=== PATIENT | female | born 1980 | race Caucasian/White ===

== ENCOUNTER → 2016-09-13 | Outpatient (REF) | payer BC ==
[~2016-09-13] MED LIST: ASPI1TAB PO; CITA20TA4 PO; DOCU100C PO; HYDR12.55 PO; HYDR25T PO; TOPI100T PO
[2016-09-13 20:06] LABS: MEAN CORPUSCULAR HEMOGLOBIN 30.8 pg (27.0-33.0); MEAN CORPUSCULAR HGB CONC 33.9 g/dl (32.0-36.5); MEAN CORPUSCULAR VOLUME 90.9 fl (80.0-96.0); RED CELL DISTRIBUTION WIDTH 12.4 % (11.5-14.5)
[2016-09-13 20:21] LABS: ALBUMIN 3.8 GM/DL (3.2-5.2); ALBUMIN/GLOBULIN RATIO 1.31 (1.00-1.93); ALKALINE PHOSPHATASE 48 U/L (45-117); ALT/SGPT 49 U/L (12-78); ANION GAP 9 MEQ/L (8-16); AST/SGOT 18 U/L (15-37); BILIRUBIN,TOTAL 0.2 MG/DL (0.2-1.0); BLOOD UREA NITROGEN 11 MG/DL (7-18); CALCIUM LEVEL 8.6 MG/DL (8.5-10.1); CARBON DIOXIDE LEVEL 28 MEQ/L (21-32); CHLORIDE LEVEL 105 MEQ/L (98-107); CREATININE FOR GFR 0.73 MG/DL (0.55-1.02); GLOMERULAR FILTRATION RATE > 60.0 (>60); GLUCOSE, FASTING 79 MG/DL (70-105); POTASSIUM SERUM 3.8 MEQ/L (3.5-5.1); SODIUM LEVEL 142 MEQ/L (136-145); TOTAL PROTEIN 6.7 GM/DL (6.4-8.2)
== END ==
LOC: M SFHCLERA 15:21
PROVIDERS: ATTEND Family Medicine
DX: R53.82 Chronic fatigue, unspecified (principal); E55.9 Vitamin D deficiency, unspecified

== ENCOUNTER → 2016-09-13 | Outpatient (CLI) | payer BC ==
--- NOTE | 2016-09-13 16:13 | REP ---
Clinical: Left rib pain . Technique: Frontal view of the chest with multiple views of the left hemithorax. Findings: Frontal view of the chest demonstrates no acute cardiopulmonary process. Multiple views of the left hemithorax demonstrates no obvious acute rib fracture or pathology. Impression: Normal left rib series Signed by Clyde Mcclellan MD 09/13/2016 04:03 P
== END ==
LOC: M LRY 15:31
PROVIDERS: ATTEND Family Medicine
DX: R07.89 Other chest pain (principal)

== ENCOUNTER → 2016-09-20 | Outpatient (CLI) | payer BC ==
[~2016-09-20] VITALS: Ht 170.2 cm; Wt 73.5 kg
[~2016-09-20] MED LIST changes: +LIDOCAINE 2% INJ 100 MG/5 ML SDV (FOR ANES.) As Ordered ONE; +NS 1,000 ML IV SCH; +PROPOFOL 200 MG/20 ML VIAL As Ordered ONE; -TOPI100T PO; +TOPI1TAB31 PO; +ePHEDrine SULFATE 25 MG/5 ML(5MG/ML) SYRINGE As Ordered ONE; +fentaNYL 100 MCG/2 ML INJECTION (J3010) As Ordered ONE
--- NOTE | 2016-09-20 12:44 | ROOR ---
Patient Name: Suzanne Rivera Procedure Date: 09/20/2016 12:33 PM Date of : 1980 Age: 36 Room: M OPP Gender: Female Note Status: Finalized Procedure: Upper GI endoscopy Indications: Functional Dyspepsia, Heartburn Providers: Raul SOTO MD Referring MD: JEZ JEAN MD Requesting Provider: Medicines: Monitored Anesthesia Care Complications: No immediate complications. Procedure: Pre-Anesthesia Assessment: - The heart rate, respiratory rate, oxygen saturations, blood pressure, adequacy of pulmonary ventilation, and response to care were monitored throughout the procedure. The Endoscope was introduced through the mouth, and advanced to the second part of duodenum. The upper GI endoscopy was accomplished without difficulty. The patient tolerated the procedure well. Findings: The esophagus was normal. The stomach was normal. The examined duodenum was normal. Impression: - Normal esophagus. - Normal stomach. - Normal examined duodenum. - No specimens collected. Recommendation: - Continue present medications. - Observe patient's clinical course. Raul Soto MD Raul SOTO MD 09/20/2016 12:44:24 PM This report has been signed electronically. Number of Addenda: 0 Note Initiated On: 09/20/2016 12:33 PM Estimated Blood Loss: Estimated blood loss: none.
--- NOTE | 2016-09-20 12:56 | ROOR ---
Patient Name: Suzanne Rivera Procedure Date: 09/20/2016 12:34 PM Date of : 1980 Age: 36 Room: [facility] Gender: Female Note Status: Finalized Procedure: Colonoscopy Indications: Generalized abdominal pain, Constipation Providers: Raul SOTO MD Referring MD: JEZ JEAN MD Requesting Provider: Medicines: Monitored Anesthesia Care Complications: No immediate complications. Procedure: Pre-Anesthesia Assessment: - The heart rate, respiratory rate, oxygen saturations, blood pressure, adequacy of pulmonary ventilation, and response to care were monitored throughout the procedure. The Colonoscope was introduced through the anus and advanced to 5 cm into the ileum. The colonoscopy was performed without difficulty. The patient tolerated the procedure well. The quality of the bowel preparation was good. Findings: The perianal and digital rectal examinations were normal. (Exam: Complete, Prep: Good or Excellent.) The colon (entire examined portion) was redundant. Small Internal Hemorrhoids. The terminal ileum appeared normal. The entire examined colon appeared normal on direct and retroflexion views. Impression: - (Exam: Complete, Prep: Good or Excellent.) - Redundant colon. - Small Internal Hemorrhoids. - The examined portion of the ileum was normal. - The entire examined colon is normal on direct and retroflexion views. - No specimens collected. - (Irritable Bowel Syndrome/IBS suspected.) Recommendation: - Continue present medications. Raul Soto MD Raul SOTO MD 09/20/2016 12:56:36 PM This report has been signed electronically. Number of Addenda: 0 Note Initiated On: 09/20/2016 12:34 PM Estimated Blood Loss: Estimated blood loss: none.
[2016-09-20 13:20] VITALS: BP 115/65
== END | disposition home or self-care (01) ==
LOC: M OPP 11:00
PROVIDERS: ATTEND Internal Medicine Gastroenterology
DX: Q43.8 Other specified congenital malformations of intestine (principal); K64.8 Other hemorrhoids; K30 Functional dyspepsia; I10 Essential (primary) hypertension; F41.9 Anxiety disorder, unspecified; F33.9 Major depressive disorder, recurrent, unspecified; F17.200 Nicotine dependence, unspecified, uncomplicated; Z79.82 Long term (current) use of aspirin; Z79.899 Other long term (current) drug therapy
CPT/HCPCS: 43235; 45378; J3010

== ENCOUNTER → 2016-12-20 | Outpatient (CLI) | payer BC ==
[~2016-12-20] MED LIST changes: -LIDOCAINE 2% INJ 100 MG/5 ML SDV (FOR ANES.) As Ordered ONE; -NS 1,000 ML IV SCH; -PROPOFOL 200 MG/20 ML VIAL As Ordered ONE; -ePHEDrine SULFATE 25 MG/5 ML(5MG/ML) SYRINGE As Ordered ONE; -fentaNYL 100 MCG/2 ML INJECTION (J3010) As Ordered ONE
--- NOTE | 2016-12-25 06:26 | REP ---
Clinical: Right inguinal palpable mass. Comparison: 05/31/2015. Technique: Real time dumont scale ultrasound examination using linear high frequency transducer. Findings: Directed ultrasound examination demonstrates small and normal-appearing lymph node at the point of palpable mass measuring 9 x 8 x 4 mm. Impression: Palpable mass corresponds to a normal lymph node. Signed by Clyde Mcclellan MD 12/25/2016 06:18 A
== END ==
LOC: M LRY 08:22
PROVIDERS: ATTEND Family Medicine
DX: R59.0 Localized enlarged lymph nodes (principal)

== ENCOUNTER → 2017-02-07 | Outpatient (REF) | payer BC ==
[2017-02-07 21:31] LABS: ALBUMIN 3.9 GM/DL (3.2-5.2); ALBUMIN/GLOBULIN RATIO 1.26 (1.00-1.93); ALKALINE PHOSPHATASE 41 U/L (45-117); ALT/SGPT 24 U/L (12-78); ANION GAP 7 MEQ/L (8-16); AST/SGOT 11 U/L (15-37); BILIRUBIN,TOTAL 0.2 MG/DL (0.2-1.0); BLOOD UREA NITROGEN 13 MG/DL (7-18); CALCIUM LEVEL 8.4 MG/DL (8.5-10.1); CARBON DIOXIDE LEVEL 27 MEQ/L (21-32); CHLORIDE LEVEL 107 MEQ/L (98-107); CREATININE FOR GFR 0.93 MG/DL (0.55-1.02); GLOMERULAR FILTRATION RATE > 60.0 (>60); GLUCOSE, FASTING 94 MG/DL (70-105); POTASSIUM SERUM 3.8 MEQ/L (3.5-5.1); SODIUM LEVEL 141 MEQ/L (136-145)
== END ==
LOC: M SFHCLERA 15:44
PROVIDERS: ATTEND Physician Assistant
DX: F41.9 Anxiety disorder, unspecified (principal); F39 Unspecified mood [affective] disorder

== ENCOUNTER → 2017-07-31 | Outpatient (REF) | payer BC ==
[~2017-07-31] MED LIST changes: -DOCU100C PO; +DOCU100C16 PO; +HYDR-3363 PO; -HYDR25T PO; +TOPI100T9 PO; -TOPI1TAB31 PO
[2017-07-31 18:52] LABS: MEAN CORPUSCULAR HGB CONC 31.7 g/dl (32.0-36.5); MEAN CORPUSCULAR VOLUME 94.8 fl (80.0-96.0); PLATELET COUNT, AUTOMATED 350 10^3/uL (150-450); RED CELL DISTRIBUTION WIDTH 12.8 % (11.5-14.5); WHITE BLOOD COUNT 8.7 10^3/uL (4.0-10.0)
[2017-07-31 18:58] LABS: ALBUMIN 3.5 GM/DL (3.2-5.2); ALBUMIN/GLOBULIN RATIO 1.06 (1.00-1.93); ALKALINE PHOSPHATASE 49 U/L (45-117); ALT/SGPT 31 U/L (12-78); ANION GAP 6 MEQ/L (8-16); AST/SGOT 13 U/L (7-37); BILIRUBIN,TOTAL 0.2 MG/DL (0.2-1.0); BLOOD UREA NITROGEN 8 MG/DL (7-18); CALCIUM LEVEL 8.5 MG/DL (8.5-10.1); CARBON DIOXIDE LEVEL 29 MEQ/L (21-32); CHLORIDE LEVEL 105 MEQ/L (98-107); CREATININE FOR GFR 0.69 MG/DL (0.55-1.02); FERRITIN 9 NG/ML (8-252); GLOMERULAR FILTRATION RATE > 60.0 (>60); GLUCOSE, FASTING 72 MG/DL (70-105); POTASSIUM SERUM 4.5 MEQ/L (3.5-5.1); SODIUM LEVEL 140 MEQ/L (136-145); TOTAL PROTEIN 6.8 GM/DL (6.4-8.2)
== END ==
LOC: M SFHCLERA 10:28
PROVIDERS: ATTEND Physician Assistant
DX: R53.83 Other fatigue (principal)

== ENCOUNTER → 2018-02-26 | Outpatient (REF) | payer BC ==
[2018-02-26 17:13] LABS: BASO # 0.1 10^3/uL (0.0-0.2); BASO % 1.2 % (0.0-1.0); EOS # 0.3 10^3/uL (0.0-0.50); EOS % 2.9 % (0.0-3.0); HEMATOCRIT 36.3 % (36.0-47.0); HEMOGLOBIN 12.1 g/dl (12.0-15.5); IMMATURE GRANULOCYTE % 0.2 % (0-3.0); LYMPH # 2.7 10^3/uL (1.5-4.5); LYMPH % 29.8 % (24.0-44.0); MEAN CORPUSCULAR HGB CONC 33.3 g/dl (32.0-36.5); MEAN CORPUSCULAR VOLUME 89.9 fl (80.0-96.0); MONO # 0.5 10^3/uL (0.0-0.8); MONO % 5.5 % (0.0-5.0); NEUTROPHILS # 5.4 10^3/uL (1.8-7.7); NEUTROPHILS % 60.4 % (36.0-66.0); PLATELET COUNT, AUTOMATED 320 10^3/uL (150-450); RED BLOOD COUNT 4.04 10^6/uL (4.00-5.40); RED CELL DISTRIBUTION WIDTH 12.6 % (11.5-14.5)
[2018-02-26 18:21] LABS: ALBUMIN 3.7 GM/DL (3.2-5.2); ALBUMIN/GLOBULIN RATIO 1.16 (1.00-1.93); ALKALINE PHOSPHATASE 45 U/L (45-117); ALT/SGPT 25 U/L (12-78); ANION GAP 9 MEQ/L (8-16); AST/SGOT 12 U/L (7-37); BILIRUBIN,TOTAL 0.3 MG/DL (0.2-1.0); BLOOD UREA NITROGEN 14 MG/DL (7-18); CALCIUM LEVEL 8.3 MG/DL (8.5-10.1); CARBON DIOXIDE LEVEL 26 MEQ/L (21-32); CHLORIDE LEVEL 104 MEQ/L (98-107); CREATININE FOR GFR 0.76 MG/DL (0.55-1.30); FERRITIN 8 NG/ML (8-252); GLOMERULAR FILTRATION RATE > 60.0 (>60); GLUCOSE, FASTING 95 MG/DL (70-100); POTASSIUM SERUM 4.1 MEQ/L (3.5-5.1); SODIUM LEVEL 139 MEQ/L (136-145); TOTAL PROTEIN 6.9 GM/DL (6.4-8.2)
== END ==
LOC: M SFHCLERA 13:57
DX: R42 Dizziness and giddiness (principal)
CPT/HCPCS: 84443

== ENCOUNTER → 2018-07-18 | Outpatient (CLI) | payer BC | LOC: M WUC 17:21 | DX: R07.1 Chest pain on breathing (principal) | CPT/HCPCS: 71046 ==

== ENCOUNTER → 2018-10-30 | Outpatient (REF) | payer BC ==
[2018-10-30 13:46] LABS: BASO # 0.1 10^3/uL (0.0-0.2); BASO % 0.8 % (0.0-1.0); EOS # 0.2 10^3/uL (0.0-0.50); EOS % 1.7 % (0.0-3.0); HEMATOCRIT 38.3 % (36.0-47.0); HEMOGLOBIN 12.6 g/dl (12.0-15.5); LYMPH % 33.3 % (24.0-44.0); MEAN CORPUSCULAR HEMOGLOBIN 30.5 pg (27.0-33.0); MEAN CORPUSCULAR HGB CONC 32.9 g/dl (32.0-36.5); MEAN CORPUSCULAR VOLUME 92.7 fl (80.0-96.0); MONO # 0.6 10^3/uL (0.0-0.8); MONO % 6.1 % (0.0-5.0); NEUTROPHILS # 5.2 10^3/uL (1.8-7.7); NEUTROPHILS % 57.8 % (36.0-66.0); PLATELET COUNT, AUTOMATED 295 10^3/uL (150-450); RED BLOOD COUNT 4.13 10^6/uL (4.00-5.40)
[2018-10-30 14:13] LABS: ALBUMIN 3.8 GM/DL (3.2-5.2); ALT/SGPT 26 U/L (12-78); BILIRUBIN,TOTAL 0.4 MG/DL (0.2-1.0); BLOOD UREA NITROGEN 13 MG/DL (7-18); CALCIUM LEVEL 8.7 MG/DL (8.5-10.1); CARBON DIOXIDE LEVEL 23 MEQ/L (21-32); CHLORIDE LEVEL 107 MEQ/L (98-107); FREE T4 0.89 NG/DL (0.76-1.46); GLOMERULAR FILTRATION RATE > 60.0 (>60); GLUCOSE, FASTING 83 MG/DL (70-100); POTASSIUM SERUM 4.2 MEQ/L (3.5-5.1); SODIUM LEVEL 138 MEQ/L (136-145); TOTAL PROTEIN 6.8 GM/DL (6.4-8.2)
== END ==
LOC: M SFHCLERA 11:10
PROVIDERS: ATTEND Family Medicine
DX: I83.813 Varicose veins of bilateral lower extremities with pain (principal)

== ENCOUNTER → 2019-01-12 | Outpatient (REF) | payer BC ==
[~2019-01-12] MED LIST changes: -ASPI1TAB PO; +ASPI81TA26 PO; -CITA20TA4 PO; +CITA20TA6 PO
[2019-01-12 11:36] LABS: HEMATOCRIT 39.7 % (36.0-47.0); HEMOGLOBIN 12.8 g/dl (12.0-15.5); MEAN CORPUSCULAR HEMOGLOBIN 30.5 pg (27.0-33.0); MEAN CORPUSCULAR HGB CONC 32.2 g/dl (32.0-36.5); MEAN CORPUSCULAR VOLUME 94.5 fl (80.0-96.0); PLATELET COUNT, AUTOMATED 308 10^3/uL (150-450)
[2019-01-12 11:50] LABS: BLOOD UREA NITROGEN 10 MG/DL (7-18); CARBON DIOXIDE LEVEL 28 MEQ/L (21-32); CHLORIDE LEVEL 105 MEQ/L (98-107); GLOMERULAR FILTRATION RATE > 60.0 (>60); GLUCOSE, FASTING 85 MG/DL (70-100); POTASSIUM SERUM 4.9 MEQ/L (3.5-5.1); SODIUM LEVEL 138 MEQ/L (136-145)
== END ==
LOC: M SFHCLERA 07:47
PROVIDERS: ATTEND Family Medicine
DX: R53.83 Other fatigue (principal)

== ENCOUNTER → 2019-02-25 | Outpatient (REF) | payer BC | LOC: M SFHCLERA 14:29 | PROVIDERS: ATTEND Nurse Practitioner Family | DX: R53.82 Chronic fatigue, unspecified (principal) ==

== ENCOUNTER → 2019-05-21 | Outpatient (CLI) | payer BC ==
--- NOTE | 2019-05-21 17:29 | REP ---
REASON: Trauma to the 4th digit of the right hand. FINDINGS: No acute fracture or destructive osseous lesion. Electronically Signed by Dominic Sierra DO 05/31/2019 10:36 A
== END ==
LOC: M WUC 15:31
PROVIDERS: ATTEND Physician Assistant
DX: S60.141A Contusion of right ring finger with damage to nail, initial encounter (principal); X58.XXXA Exposure to other specified factors, initial encounter; Y92.89 Other specified places as the place of occurrence of the external cause

== ENCOUNTER → 2019-07-16 | Outpatient (CLI) | payer BC ==
--- NOTE | 2019-07-16 12:14 | REP ---
Five views chest and left ribs: 07/16/2019. Indication: Left chest trauma. Comparison: 09/13/2016 and 07/18/2018. Findings: There is no evidence of acute new new rib fracture. There is no lung contusion. The lungs are clear. There is no evidence of pleural effusion or pneumothorax. The cardiomediastinal silhouette is unremarkable. Impression: No acute rib fracture detected. Electronically Signed by Greyson Partida DO 07/16/2019 12:05 P
--- NOTE | 2019-07-16 12:35 | REP ---
Seven views cervical spine: 07/16/2019. Indication: Cervical spine trauma. Comparison: New none. Findings: There is no evidence of acute fracture, subluxation or dislocation. No instability is demonstrated on the flexion/extension views. The neural foramina appear patent. There is straightening of the cervical lordosis and minimal anterolisthesis of C4 and C5. The prevertebral and additionally visualized soft tissues are unremarkable. Impression: No acute osseous injury of the cervical spine detected. Electronically Signed by Greyson Partida DO 07/16/2019 12:26 P
== END ==
LOC: M LRY 11:26
PROVIDERS: ATTEND Family Medicine
DX: S20.212D Contusion of left front wall of thorax, subsequent encounter (principal)

== ENCOUNTER → 2020-05-30 | Outpatient (CLI) | payer BC ==
[~2020-05-30] MED LIST changes: +CLOT1CRE56 TOP; +D31000TA2 PO; +IBUP-1427 PO; +MEDI473O PO; +TIZA4CAP PO; +VOLT1GEL15 TOP
[2020-05-30 17:16] LABS: BASO # 0.1 10^3/uL (0.0-0.2); BASO % 0.8 % (0.0-1.0); EOS # 0.1 10^3/uL (0.0-0.5); EOS % 1.4 % (0.0-3.0); HEMATOCRIT 36.7 % (36.0-47.0); LYMPH % 31.1 % (24.0-44.0); MEAN CORPUSCULAR HEMOGLOBIN 30.6 pg (27.0-33.0); MEAN CORPUSCULAR HGB CONC 32.7 g/dl (32.0-36.5); MEAN CORPUSCULAR VOLUME 93.6 fl (80.0-96.0); MONO # 0.5 10^3/uL (0.0-0.8); MONO % 5.1 % (0.0-5.0); NEUTROPHILS # 5.8 10^3/uL (1.5-8.5); NEUTROPHILS % 61.2 % (36.0-66.0); PLATELET COUNT, AUTOMATED 336 10^3/uL (150-450); RED BLOOD COUNT 3.92 10^6/uL (4.00-5.40); WHITE BLOOD COUNT 9.5 10^3/uL (4.0-10.0)
[2020-05-30 19:17] LABS: FREE T4 0.85 NG/DL (0.76-1.46); THYROID STIMULATING HORMONE 1.65 uIU/ML (0.358-3.740)
--- NOTE | 2020-06-07 09:04 | REP ---
THYROID ULTRASOUND HISTORY: Dysphagia. TECHNIQUE: Real-time sonographic evaluation of the thyroid is performed. FINDINGS: The right lobe is very mildly enlarged. Left lobe is normal in size. Right lobe measures 5.0 x 1.3 x 1.3 cm and the left lobe 3.9 x 1.6 x 1.2 cm. No cystic or solid nodule is seen bilaterally in either lobe. IMPRESSION: Slight enlargement of the right lobe is nonspecific. No evidence of cystic or solid nodule in the thyroid. MTDD
== END ==
LOC: M RAD 15:57
PROVIDERS: ATTEND Nurse Practitioner Family
DX: R13.10 Dysphagia, unspecified (principal); E01.0 Iodine-deficiency related diffuse (endemic) goiter

== ENCOUNTER → 2020-07-05 | Outpatient (CLI) | payer BC ==
[2020-07-05 11:34] LABS: BASO # 0.1 10^3/uL (0.0-0.2); BASO % 1.1 % (0.0-1.0); EOS # 0.1 10^3/uL (0.0-0.5); EOS % 1.1 % (0.0-3.0); HEMATOCRIT 40.5 % (36.0-47.0); LYMPH # 2.4 10^3/uL (1.5-5.0); LYMPH % 35.7 % (24.0-44.0); MEAN CORPUSCULAR HEMOGLOBIN 29.6 pg (27.0-33.0); MEAN CORPUSCULAR HGB CONC 32.1 g/dl (32.0-36.5); MEAN CORPUSCULAR VOLUME 92.3 fl (80.0-96.0); MONO # 0.5 10^3/uL (0.0-0.8); MONO % 6.8 % (0.0-5.0); NEUTROPHILS # 3.6 10^3/uL (1.5-8.5); PLATELET COUNT, AUTOMATED 297 10^3/uL (150-450); RED BLOOD COUNT 4.39 10^6/uL (4.00-5.40); WHITE BLOOD COUNT 6.6 10^3/uL (4.0-10.0)
== END ==
LOC: M WUC 09:20
PROVIDERS: ATTEND Family Medicine
DX: Z01.818 Encounter for other preprocedural examination (principal)

== ENCOUNTER → 2020-07-13 | Outpatient (CLI) | payer BC | LOC: M LABSMTC 10:28 | PROVIDERS: ATTEND Anesthesiology | DX: Z01.812 Encounter for preprocedural laboratory examination (principal); Z20.828 Contact with and (suspected) exposure to other viral communicable diseases ==

== ENCOUNTER 2020-07-18 06:20 | Day surgery (SDC) | payer BC ==
[2020-07-18] VITALS (7 sets, daily range): BP systolic 102–123; BP diastolic 60–68
[~2020-07-18] VITALS: Ht 170.2 cm; Wt 78.9 kg
[~2020-07-18 06:20] MED LIST changes: +LR 1,000 ML IV ONE; +ceFAZolin SOD 1 GM in D5W MINI-BAG PLUS 50 ML IV ONE
[2020-07-18] MEDS ORDERED: fentaNYL 250 MCG/5 ML INJECTION (J3010) As Ordered ONE (07:26)
[2020-07-18] MEDS ORDERED: ROCURONIUM BROMIDE 50 MG/5 ML VIAL As Ordered ONE ×2 (07:26→08:57)
[2020-07-18] MEDS ORDERED: dexameTHASONE 4 MG/ML 1ML VIAL (J1100 PER 1MG) As Ordered ONE (07:26)
[2020-07-18] MEDS ORDERED: BACITRACIN PWD 50,000 UNITS VIAL As Ordered ONE (07:26)
[2020-07-18] MEDS ORDERED: propofoL 200 MG/20 ML VIAL As Ordered ONE (07:26)
[2020-07-18] MEDS ORDERED: LIDOCAINE 2% 100MG/5ML SDV (FOR ANES.) As Ordered ONE (07:26)
[2020-07-18] MEDS ORDERED: BUPIVACAINE LIPOSOME/PF 1.3% 20ML VIAL (13.3MG/ML)(EXPAREL)(C9290 PER1MG) As Ordered ONE (07:26)
[2020-07-18] MEDS ORDERED: MIDAZOLAM INJ 2MG/2ML VIAL (J2250 PER 1MG) As Ordered ONE (07:27)
[2020-07-18] MEDS ORDERED: LACRILUBE (AKWA TEARS) OPHTH OINT 3.5 GM As Ordered ONE (07:58)
[2020-07-18] MEDS ORDERED: ePHEDrine SULFATE 25 MG/5 ML(5MG/ML) SYRINGE As Ordered ONE (08:00)
[2020-07-18] MEDS ORDERED: HEPARIN SOD (PORCINE) 5000UNITS/ML 1ML VIAL/SYRINGE As Ordered ONE (08:17)
[2020-07-18] MEDS ORDERED: ONDANSETRON 4MG/2ML VIAL As Ordered ONE ×2 (09:02→10:38)
[2020-07-18] MEDS ORDERED: ACETAMINOPHEN 1000MG 100ML IV BTL (OFIRMEV) (J0131 PER 10MG) As Ordered ONE (09:02)
[2020-07-18] MEDS ORDERED: SUGAMMADEX SODIUM 500 MG/5 ML VIAL (BRIDION) As Ordered ONE (09:02)
[2020-07-18] MEDS ORDERED: HYDROmorphone HCL 2 MG/ML 1ML VIAL (J1170) As Ordered ONE (09:03)
--- NOTE | 2020-07-18 10:36 | POST-OPPD ---
Postoperative Procedure Note Date Of Procedure: Jul 18, 2020 PREOPERATIVE DIAGNOSIS: Panniculitis POSTOPERATIVE DIAGNOSIS: same FINDINGS: Pannus PROCEDURE: Extended panniculectomy with rectus muscle plication SURGEON: Dr Marin PLATER HELPER: Dr Walton ANESTHESIA: General SPECIMENS: Pannus 1308g ESTIMATED BLOOD LOSS: 75cc REPLACED: none DRAINS: 10 mm CANDY drains x 2 COMPLICATIONS: none POSTOPERATIVE CONDITION: stable dict [id number] JUAN MARIN DO Jul 18, 2020 10:36
[2020-07-18] MEDS ORDERED: PERCOCET 5MG/325MG TAB PO PRN (10:45)
[2020-07-18] MEDS ORDERED: ACETAMINOPHEN TAB 650MG DOSE (2X325MG) PO PRN (10:45)
[2020-07-18] MEDS ORDERED: oxyCODONE 5MG TAB PO PRN ×2 (10:45→13:00)
[2020-07-18] MEDS ORDERED: METOCLOPRAMIDE INJ 10MG/2ML VIAL (J2765 PER 1) IV PRN ×2 (10:45→13:00)
[2020-07-18] MEDS ORDERED: hydrOXYzine 25 MG TAB PO PRN (10:45)
[2020-07-18] MEDS ORDERED: LR 1,000 ML IV SCH ×2 (10:45→13:00)
[2020-07-18] MEDS ORDERED: KETOROLAC TROMETHAMINE 10 MG TAB PO PRN (10:45)
[2020-07-18] MEDS ORDERED: ONDANSETRON 4MG/2ML VIAL IV PRN ×3 (10:45→13:00)
[2020-07-18] MEDS ORDERED: MEPERIDINE INJ 25 MG/ML VIAL (J2175) IV PRN ×2 (10:45→13:00)
[2020-07-18] MEDS: fentaNYL 100 MCG/2 ML INJECTION (J3010) IV PRN ×4 (11:02→11:34)
[2020-07-18] MEDS ORDERED: NORCO, ANEXSIA 5/325MG TABLET (HYDROcodone/ACETAMINOPHEN) PO PRN ×2 (11:45→13:30)
[2020-07-18] MEDS ORDERED: fentaNYL 100 MCG/2 ML INJECTION (J3010) IV PRN (13:00)
[2020-07-18] MEDS: LR 1,000 ML IV SCH (15:14)
[2020-07-18] MEDS: NORCO, ANEXSIA 5/325MG TABLET (HYDROcodone/ACETAMINOPHEN) PO PRN ×2 (16:08→20:44)
[2020-07-18] MEDS: ceFAZolin SOD 1 GM in D5W MINI-BAG PLUS 50 ML IV SCH (16:08)
[2020-07-19] MEDS: ceFAZolin SOD 1 GM in D5W MINI-BAG PLUS 50 ML IV SCH ×2 (00:28→08:22)
[2020-07-19] MEDS: LR 1,000 ML IV SCH (00:29)
[2020-07-19] MEDS: NORCO, ANEXSIA 5/325MG TABLET (HYDROcodone/ACETAMINOPHEN) PO PRN ×3 (01:03→10:23)
[2020-07-19 02:00] VITALS: BP 92/61
[2020-07-19 06:00] VITALS: BP 97/61
--- NOTE | 2020-07-19 08:56 | IPNPDOC ---
Subjective General Date Seen: Jul 19, 2020 Subject Chief Complaint/History The patient is a 40-year-old female admitted with a reason for visit of Panniculitis. Patient s/p extended panniculectomy with rectus muscle plication POD 1. Doing well Urinated last night, ambulated. Tolerating diet. Current Medications Current Medications Current Medications Medications (Trade) Dose Ordered Sig/Odilia Route PRN Reason Start Time Stop Time Status Last Admin Dose Admin Acetaminophen (Tylenol Tab) 650 mg Q6H PRN PO FEVER 07/18/20 10:45 Acetaminophen/ Hydrocodone Bitart ([place], [place] 5/325) 1 tab ASDIRECTED PRN PO PAIN LEVEL 1-4 07/18/20 11:45 07/18/20 12:45 DC 07/18/20 11:42 Acetaminophen/ Hydrocodone Bitart ([place], [place] 5/325) 1 tab Q4HP PRN PO MILD PAIN 07/18/20 13:30 Acetaminophen/ Hydrocodone Bitart ([place], [place] 5/325) 2 tab Q4HP PRN PO SEVERE PAIN (PS 8-10) 07/18/20 13:30 07/19/20 06:01 Cefazolin Sodium 1 gm/Dextrose 50 ml @ 100 mls/hr Q8H IV 07/18/20 16:00 07/19/20 08:22 Fentanyl Citrate (Sublimaze) 25 mcg Q5MP PRN IV PAIN LEVEL 5-10 07/18/20 10:45 07/18/20 11:45 DC 07/18/20 11:34 Fentanyl Citrate (Sublimaze) 25 mcg Q5MP PRN IV PAIN LEVEL 5-10 07/18/20 13:00 07/18/20 14:00 Cancel Hydroxyzine HCl (Atarax) 25 mg Q4HP PRN PO ANXIETY/AGITATION 07/18/20 10:45 Ketorolac Tromethamine (ToRADol) 10 mg Q6HP PRN PO MODERATE PAIN (PS 5-7) 07/18/20 10:45 07/23/20 10:44 07/18/20 15:14 Lactated Ringer's 1,000 ml @ 75 mls/hr [id number] IV 07/18/20 10:36 07/19/20 00:29 Lactated Ringer's 1,000 ml @ 100 mls/hr Q10H IV 07/18/20 10:45 07/18/20 11:45 DC Lactated Ringer's 1,000 ml @ 100 mls/hr Q10H IV 07/18/20 13:00 07/18/20 14:00 Cancel Meperidine HCl (Demerol) 12.5 mg Q5MP PRN IV SHIVERING 07/18/20 10:45 07/18/20 11:45 DC Meperidine HCl (Demerol) 12.5 mg Q5MP PRN IV SHIVERING 07/18/20 13:00 07/18/20 14:00 Cancel Metoclopramide HCl (REGLAN INJection) 10 mg Q6HP PRN IV NAUSEA OR VOMITING 07/18/20 10:45 07/18/20 10:52 DC 07/18/20 10:51 Metoclopramide HCl (REGLAN INJection) 10 mg Q6HP PRN IV NAUSEA OR VOMITING 07/18/20 13:00 07/18/20 14:00 Cancel Ondansetron HCl (ZOFRAN INJection) 4 mg Q4H PRN IV NAUSEA OR VOMITING 07/18/20 10:45 Ondansetron HCl (ZOFRAN INJection) 4 mg Q4HP PRN IV NAUSEA OR VOMITING 07/18/20 10:45 07/18/20 11:45 DC 07/18/20 10:41 Ondansetron HCl (ZOFRAN INJection) 4 mg Q4HP PRN IV NAUSEA OR VOMITING 07/18/20 13:00 07/18/20 14:00 Cancel Oxycodone HCl (Roxicodone, Oxyir) 5 mg ASDIRECTED PRN PO PAIN LEVEL 1-4 07/18/20 10:45 07/18/20 11:45 DC Oxycodone HCl (Roxicodone, Oxyir) 5 mg ASDIRECTED PRN PO PAIN LEVEL 1-4 07/18/20 13:00 07/18/20 14:00 Cancel Oxycodone/ Acetaminophen (Percocet 5mg/ 325mg Tablet) 2 tab Q4HP PRN PO SEVERE PAIN (PS 8-10) 07/18/20 10:45 07/18/20 13:27 DC Allergies Coded Allergies: No Known Allergies (Unverified , 07/11/20) Objective Physical Examination Examination GENERAL APPEARANCE:Patient seen, laying in bed, awake, alert, and oriented. Comfortable, in no acute distress. SKIN: Warm and moist. NECK: Supple, no thyromegaly. No obvious jugular venous distention. LUNGS: Clear to auscultation bilaterally. No wheezing appreciated. HEART: No chest wall abnormalities. Regular rate and rhythm with no murmurs appreciated. ABDOMEN: Abdomen is soft, non-tender, non-distended. Incision intact. Umbilicus viable. CANDY drains with serosanguinous drainage. 40 cc/24hr each drain. EXTREMITIES: No edema identified. No calf tenderness. Vital Signs Vital Signs Date Time Temp Pulse Resp B/P (MAP) Pulse Ox O2 Delivery O2 Flow Rate FiO2 07/19/20 06:31 16 07/19/20 06:00 99.1 83 97/61 (73) 98 Room Air 07/18/20 11:08 3 I&Os I&O- Last 24 Hours up to 6 AM 07/19/20 05:59 Intake Total 3375 ml Output Total 1543 ml Balance 1832 ml Impression S/p panniculectomy POD 1. Stable for discharge. Dressing changed [place] for pain, Rx sent Monitor CANDY drains, keep abdominal binder on. Keep body comfortably flexed. F/up plastic surgery 07/21/20 Plan / VTE VTE Prophylaxis Ordered?: Yes JUAN MARIN DO Jul 19, 2020 08:56
[2020-07-19] MEDS ORDERED: NORC1TAB7 PO (09:01)
[2020-07-19] MEDS ORDERED: ZOFR4TAB16 PO (09:59)
[2020-07-19 10:00] VITALS: BP 101/61
--- NOTE | 2020-07-19 12:40 | RO ---
DATE OF OPERATION: 07/18/2020 PREOPERATIVE DIAGNOSIS: Panniculitis. POSTOPERATIVE DIAGNOSIS: Panniculitis. PROCEDURE: Extended panniculectomy with rectus muscle plication. SURGEON: Cheyenne Jasso DO STADIUM ATTENDANT: Yuki Walton DO ANESTHESIA: General. SPECIMENS SENT: Pannus, 1308 grams. BLOOD LOSS: 75 mL, no replacement. DRAINS: Two 10 mm Corbin-Escobar drains. COMPLICATIONS: None. PROCEDURE: This is a 40-year-old female who is status post significant weight loss. She has developed significant pannus which is causing her discomfort and intercurrent infections. She is scheduled for excision. Risks, benefits and alternatives discussed with the patient. She is ready to proceed. She was marked in the upright position in the preop holding area. Her incision is going to be 6 cm above the labial verge and then she was brought into the operating room and placed in supine position. Preoperative antibiotics were given. Sequential stockings placed on her lower calves. General anesthesia is induced. Castellano catheter was introduced in the bladder without any difficulties and she was prepped and draped in the usual sterile fashion. Also, 5000 heparin subcutaneous was given preoperatively. The incision was carried out in the lower abdominal fashion. Sharp dissection using electrocautery and PEAK cautery was done until the rectus fascia was identified and then the flap raised superiorly of the umbilicus fat was encountered. The rhomboid incision was made around the umbilicus and then we continued raising the flap until the xiphoid superiorly and lateral costal margins. Hemostasis was obtained using electrocautery. The rectus muscle was reexamined. Diathesis was identified, four fingerbreadth length, and plication was done using interrupted 0 Vicryl sutures then followed by #1 PDS looped suture to repair the diathesis. The knot from the PDS was buried with the 0 Vicryl sutures, and patient was placed in the reflex position. Excess tissue was measured and resected creating the lower flap and gradual tension sutures were placed in the midline; 0 Vicryl used and then the lower flap was then fitted and we started our closure with interrupted 0 Vicryl sutures and then 3-0 Monocryl sutures for the lower abdominal incision. Ten-millimeter Corbin-Escobar drains were placed through the lateral portions of the horizontal incision and sutured in place. V-Loc sutures were used for the final subcutaneous closure for the lower abdominal incision. Umbilical stump was brought out through the separate opening that was created. This was a small rhomboid opening that was done with electrocautery. The umbilicus was brought into view and sutured in place with 3- 0 Monocryl and 5-0 plain sutures. Prineo dressing was applied to the lower abdominal incision and the Xeroform to the umbilicus. Fluffy dressing and an abdominal binder were placed. The patient was extubated in the operating room without any difficulty and transferred to the recovery room in stable condition. JENNIFER
== END 2020-07-19 14:05 | disposition home or self-care (01) ==
LOC: M SDC 06:20 → M MS5PR 12:30 → M SDC 07-19 14:05
PROVIDERS: ATTEND Plastic Surgery Surgery of the Hand
DX: E65 Localized adiposity (principal); F41.9 Anxiety disorder, unspecified; F32.9 Major depressive disorder, single episode, unspecified; R06.83 Snoring; Z79.899 Other long term (current) drug therapy
CPT/HCPCS: 15830; 15847; 81025; 88302; 96360; 96361; 96374; 96375; 96376; C9290; J0131; J0690; J1100; J1170; J1644; J2250; J2405; J2765; J3010

== ENCOUNTER → 2020-12-15 | Outpatient (CLI) | payer BC ==
[~2020-12-15] MED LIST changes: +ALBU0.63 INH; +FERR325T3 PO; -LR 1,000 ML IV ONE; +NORC1TAB7 PO; +XARE15TA PO; +XARE20TA PO; +ZOFR4TAB16 PO; -ceFAZolin SOD 1 GM in D5W MINI-BAG PLUS 50 ML IV ONE
--- NOTE | 2020-12-15 11:19 | REP ---
INDICATION: PERSONAL HX OF VENOUS THROMBOSIS. COMPARISON: None. TECHNIQUE: Multiple ultrasonographic images of the deep venous structures of the bilateral thigh were obtained from the common femoral vein to the popliteal vein along with Doppler interrogation and color flow Doppler images. FINDINGS: There is no abnormal echogenic material seen within any of the visualized deep venous structures that would suggest acute thrombosis. Coaptation is unremarkable throughout. Doppler interrogation shows an expected response to respiratory variability and augmentation. The color flow images show what appears to be a normal vascular pattern throughout. IMPRESSION: There is no ultrasonographic evidence of deep venous thrombosis involving any of the visualized deep venous structures of the bilateral thigh, as described above. <Electronically signed by Dominic Sierra > 12/15/20 [id number]
== END ==
LOC: M RAD 10:47
PROVIDERS: ATTEND Physician Assistant
DX: Z86.718 Personal history of other venous thrombosis and embolism (principal)

== ENCOUNTER → 2021-03-14 | Outpatient (CLI) | payer BC ==
[~2021-03-14] MED LIST changes: +MULT-90 PO; +PROHANCE 279.3MG/ML 15ML VIAL As Ordered ONE; +XARE10TA PO
--- NOTE | 2021-03-14 14:16 | REP ---
INDICATION: DVT LT LUNG, LT HIP PAIN. COMPARISON: None. TECHNIQUE: Precontrast imaging includes coronal T1 and T2-weighted scans of both hips. Precontrast high-resolution smaller field of view axial, coronal and sagittal T2 fat sat images are acquired of the left hip. Gadolinium enhancement dose is 14 mL of intravenous ProHance. Postcontrast T1 fat sat images are acquired in all 3 planes. FINDINGS: Pre contrast study of both hips demonstrate cortical and medullary bone signal intensity is normal in the proximal femurs bilaterally. There is no evidence of avascular necrosis. Similarly, the bony pelvic ring appears intact as visualized. There is no evidence to suggest metastatic bone involvement. No uterine or ovarian abnormality is appreciated. No abdominal wall defect is observed. No pelvic mass or adenopathy is seen. The hamstring tendon insertions are normal and symmetric. No joint effusion is seen in either hip. Pre and post-contrast enhanced study demonstrates a small subcortical cyst in the femoral neck anteriorly. This is not clinically significant. There is no evidence of acetabular labral disruption. No loose body is seen. Ligamentum teres is intact. No abnormal contrast enhancement is appreciated. IMPRESSION: Unremarkable MR I study of the pelvis and left hip with pre and postcontrast imaging. No bony destructive lesions seen. <Electronically signed by Aniceto Hall > 03/14/21 [id number]
== END ==
LOC: M RAD 08:58
PROVIDERS: ATTEND Internal Medicine Medical Oncology
DX: M25.552 Pain in left hip (principal); I26.92 Saddle embolus of pulmonary artery without acute cor pulmonale
CPT/HCPCS: 73723; A9576

== ENCOUNTER → 2021-03-20 | Outpatient (CLI) | payer BC ==
[~2021-03-20] MED LIST changes: -PROHANCE 279.3MG/ML 15ML VIAL As Ordered ONE
--- NOTE | 2021-03-20 14:45 | REP ---
INDICATION: UPPER EXTREMITY SWELLING/KNOT, HX DVT. COMPARISON: None. TECHNIQUE: Right upper extremity duplex venous sonography with Doppler. FINDINGS: The internal jugular, axillary, brachial, basilic, and cephalic veins are anechoic and compressible in the right upper extremity. Color flow imaging is homogeneous. Spectral Doppler interrogation is unremarkable. Venous spectral Doppler waveforms are recorded in the proximal right and left subclavian veins. There is symmetric normal pulsatility and respiratory phasicity. There is no evidence of right upper extremity venous thrombosis. IMPRESSION: Negative right upper extremity duplex venous ultrasound. No evidence of venous thrombosis. <Electronically signed by Aniceto Hall > 03/20/21 [id number]
== END ==
LOC: M RAD 14:01
PROVIDERS: ATTEND Internal Medicine Medical Oncology
DX: R22.31 Localized swelling, mass and lump, right upper limb (principal); Z86.718 Personal history of other venous thrombosis and embolism

== ENCOUNTER → 2021-08-14 | Outpatient (CLI) | payer BC ==
--- NOTE | 2021-08-14 16:20 | REP ---
INDICATION: B/L DIAG RIGHT BREAST LUMP. COMPARISON: Bilateral screening mammogram, 08/15/2017. TECHNIQUE: 2D and 3D cc and MLO views of the right breast were obtained. Targeted right breast ultrasound was performed. FINDINGS: There is no mammographic correlate to the palpable abnormality in the right breast. There are no suspicious calcifications, dominant masses or areas of architectural distortion in either breast. The Volpara volumetric breast density pattern is B, there are scattered areas of fibroglandular density. Right breast ultrasound: There are no cystic or solid masses in the right breast. IMPRESSION: BIRADS/ACR : Category 1: Negative. This patient's Tyrer-Cuzick lifetime breast cancer risk assessment score is 13.5%. This mammogram was interpreted with the aid of an FDA-approved computer-aided detection system. The patient states she had a clinical breast exam in August 2021. The patient letter being requested is M1. RECOMMENDATION: Repeat screening mammography recommended 1 year (for women over 40). <Electronically signed by Neel Jason > 08/14/21 [id number]
== END ==
LOC: M WHC 12:53
PROVIDERS: ATTEND Nurse Practitioner Family
DX: N63.12 Unspecified lump in the right breast, upper inner quadrant (principal)
CPT/HCPCS: 76642; 77066; G0279

== ENCOUNTER → 2021-08-17 | Outpatient (REF) | payer BC ==
[2021-08-17 17:00] LABS: CHOLESTEROL RISK RATIO 4.206 (<5)
== END ==
LOC: M LAB REF 16:02
PROVIDERS: ATTEND Nurse Practitioner Family
DX: Z00.00 Encounter for general adult medical examination without abnormal findings (principal); Z78.9 Other specified health status

== ENCOUNTER → 2021-09-21 | Outpatient (REF) | payer BC | LOC: M SFHCWAGY 14:53 | PROVIDERS: ATTEND Advanced Practice Midwife | DX: Z12.4 Encounter for screening for malignant neoplasm of cervix (principal) | CPT/HCPCS: 87624; G0123 ==

== ENCOUNTER → 2022-05-29 | Outpatient (CLI) | payer BC ==
[~2022-05-29] MED LIST changes: -D31000TA2 PO; +TIZA10TA; +TOPI25TA10; +VITA100093 PO
[2022-05-29 13:01] LABS: BASO # 0.1 10^3/uL (0.0-0.2); BASO % 0.9 % (0.0-1.0); EOS # 0.1 10^3/uL (0.0-0.5); EOS % 1.1 % (0.0-3.0); HEMATOCRIT 36.8 % (36.0-47.0); HEMOGLOBIN 11.8 g/dl (12.0-15.5); LYMPH # 2.6 10^3/uL (1.5-5.0); LYMPH % 40.3 % (24.0-44.0); MEAN CORPUSCULAR HEMOGLOBIN 30.6 pg (27.0-33.0); MEAN CORPUSCULAR HGB CONC 32.1 g/dl (32.0-36.5); MEAN CORPUSCULAR VOLUME 95.6 fl (80.0-96.0); MONO # 0.4 10^3/uL (0.0-0.8); MONO % 5.8 % (2.0-8.0); NEUTROPHILS # 3.3 10^3/uL (1.5-8.5); NEUTROPHILS % 51.7 % (36.0-66.0); PLATELET COUNT, AUTOMATED 318 10^3/uL (150-450); RED BLOOD COUNT 3.85 10^6/uL (4.00-5.40); WHITE BLOOD COUNT 6.3 10^3/uL (4.0-10.0)
[2022-05-29 13:48] LABS: CHOLESTEROL RISK RATIO 2.927 (<5)
== END ==
LOC: M WUC 09:20
PROVIDERS: ATTEND Family Medicine
DX: E78.5 Hyperlipidemia, unspecified (principal); K62.5 Hemorrhage of anus and rectum; K59.00 Constipation, unspecified

== ENCOUNTER → 2022-12-17 | Outpatient (CLI) | payer BC ==
[~2022-12-17] MED LIST changes: +OMEG10002 PO; +TOPA50TA8 PO
== END ==
LOC: M WHC 14:34
PROVIDERS: ATTEND Advanced Practice Midwife
DX: Z12.31 Encounter for screening mammogram for malignant neoplasm of breast (principal)

== ENCOUNTER → 2022-12-17 | Outpatient (REF) | payer BC | LOC: M SFHCWAGY 17:40 | PROVIDERS: ATTEND Advanced Practice Midwife | DX: Z12.4 Encounter for screening for malignant neoplasm of cervix (principal) | CPT/HCPCS: 87624; G0123 ==

== ENCOUNTER → 2023-01-13 | Outpatient (CLI) | payer BC ==
[~2023-01-13] MED LIST changes: +VITMTA PO
[2023-01-13 19:41] LABS: RHEUMATOID FACTOR QUANT 5.8 IU/ML (<14)
[2023-01-13 19:43] LABS: THYROID STIMULATING HORMONE 1.083 uIU/ML (0.55-4.78)
[2023-01-15 12:10] LABS: ANTINUCLEAR ANTIBODIES DIRECT Negative (Negative)
== END ==
LOC: M WUC 14:56
PROVIDERS: ATTEND Psychiatry & Neurology Neurology
DX: R51.9 Headache, unspecified (principal)

== ENCOUNTER → 2023-03-26 | Outpatient (CLI) | payer BC ==
[2023-03-26 12:41] LABS: CHOLESTEROL RISK RATIO 2.74 (<5); HDL CHOLESTEROL 79.3 MG/DL (>40); LDL CHOLESTEROL 115.5 MG/DL (<100); NON-HDL-C 138.7 MG/DL
== END ==
LOC: M WUC 09:36
PROVIDERS: ATTEND Family Medicine
DX: E78.5 Hyperlipidemia, unspecified (principal)

== ENCOUNTER 2023-04-08 08:57 | Day surgery (SDC) | payer BC ==
[~2023-04-08] VITALS: Ht 167.6 cm; Wt 74.5 kg
[~2023-04-08 08:57] MED LIST changes: +NS 1,000 ML IV ONE
[2023-04-08 10:39] VITALS: TEMP 98.7
[2023-04-08 11:02] VITALS: BP 106/60; O2SAT 99
[2023-04-08] MEDS ORDERED: propofoL 200 MG/20 ML VIAL As Ordered ONE (13:43)
== END 2023-04-08 11:09 | disposition home or self-care (01) ==
LOC: M OPP 08:57
PROVIDERS: ATTEND Internal Medicine Gastroenterology
DX: K92.1 Melena (principal); Z80.0 Family history of malignant neoplasm of digestive organs; D50.9 Iron deficiency anemia, unspecified; K64.8 Other hemorrhoids; K57.30 Diverticulosis of large intestine without perforation or abscess without bleeding; Z79.01 Long term (current) use of anticoagulants; Z79.899 Other long term (current) drug therapy

== ENCOUNTER → 2023-10-09 | Outpatient (REF) | payer BC ==
[~2023-10-09] MED LIST changes: -NS 1,000 ML IV ONE; +SENN-83
== END ==
LOC: M LAB REF 17:44
PROVIDERS: ATTEND Surgery
DX: D17.9 Benign lipomatous neoplasm, unspecified (principal)

== ENCOUNTER → 2023-12-12 | Outpatient (CLI) | payer BC ==
[2023-12-12 13:23] LABS: BASO # 0.1 10^3/uL (0.0-0.2); BASO % 0.8 % (0.0-1.0); EOS # 0.1 10^3/uL (0.0-0.5); EOS % 1.1 % (0.0-3.0); HEMATOCRIT 36.9 % (36.0-47.0); HEMOGLOBIN 12.3 g/dl (12.0-15.5); LYMPH # 2.9 10^3/uL (1.5-5.0); LYMPH % 33.3 % (24.0-44.0); MEAN CORPUSCULAR HEMOGLOBIN 31.9 pg (27.0-33.0); MEAN CORPUSCULAR HGB CONC 33.3 g/dl (32.0-36.5); MEAN CORPUSCULAR VOLUME 95.6 fl (80.0-96.0); MONO # 0.5 10^3/uL (0.0-0.8); MONO % 5.5 % (2.0-8.0); NEUTROPHILS # 5.1 10^3/uL (1.5-8.5); PLATELET COUNT, AUTOMATED 335 10^3/uL (150-450); RED BLOOD COUNT 3.86 10^6/uL (4.00-5.40); WHITE BLOOD COUNT 8.7 10^3/uL (4.0-10.0)
[2023-12-12 13:48] LABS: ALBUMIN 3.4 G/DL (3.2-5.2); ALKALINE PHOSPHATASE 40 U/L (46-116); ALT/SGPT 18 U/L (7.0-40); AST/SGOT 10 U/L (<34); BILIRUBIN,TOTAL 0.4 MG/DL (0.3-1.2); BLOOD UREA NITROGEN 15 MG/DL (9-23); CALCIUM LEVEL 9.2 MG/DL (8.5-10.1); CARBON DIOXIDE LEVEL 24 MMOL/L (20-31); CHLORIDE LEVEL 106 MMOL/L (98-107); CREATININE FOR GFR 0.75 MG/DL (0.55-1.30); GLOMERULAR FILTRATION RATE > 60.0 (>58); GLUCOSE, FASTING 95 MG/DL (60-100); POTASSIUM SERUM 4.3 MMOL/L (3.5-5.1); SODIUM LEVEL 137 MMOL/L (136-145); TOTAL PROTEIN 6.5 G/DL (5.7-8.2)
== END ==
LOC: M LAB 12:37
PROVIDERS: ATTEND Psychiatry & Neurology Neurology
DX: R51.9 Headache, unspecified (principal)

== ENCOUNTER → 2023-12-23 | Outpatient (REF) | payer BC | LOC: M SFHCWAGY 13:02 | PROVIDERS: ATTEND Advanced Practice Midwife | DX: Z12.4 Encounter for screening for malignant neoplasm of cervix (principal) | CPT/HCPCS: 87624; G0123 ==

== ENCOUNTER → 2023-12-23 | Outpatient (CLI) | payer BC | LOC: M WHC 08:25 | PROVIDERS: ATTEND Advanced Practice Midwife | DX: Z12.31 Encounter for screening mammogram for malignant neoplasm of breast (principal) ==

== ENCOUNTER → 2024-01-13 | Outpatient (CLI) | payer BC | LOC: M RAD 14:45 | PROVIDERS: ATTEND Student in an Organized Health Care Education/Training Program | DX: F07.81 Postconcussional syndrome (principal) ==

== ENCOUNTER → 2024-10-04 | Outpatient (CLI) | payer BC ==
[~2024-10-04] MED LIST changes: +SENN-187; -SENN-83; +TOPA100T12 PO
[2024-10-04 11:35] LABS: BASO # 0.1 10^3/uL (0.0-0.2); EOS # 0.1 10^3/uL (0.0-0.5); EOS % 0.5 % (0.0-3.0); HEMATOCRIT 36.5 % (36.0-47.0); HEMOGLOBIN 11.8 g/dl (12.0-15.5); LYMPH # 2.7 10^3/uL (1.5-5.0); LYMPH % 23.1 % (24.0-44.0); MEAN CORPUSCULAR HEMOGLOBIN 30.2 pg (27.0-33.0); MEAN CORPUSCULAR HGB CONC 32.3 g/dl (32.0-36.5); MEAN CORPUSCULAR VOLUME 93.4 fl (80.0-96.0); MONO # 0.6 10^3/uL (0.0-0.8); MONO % 5.4 % (2.0-8.0); NEUTROPHILS # 8.1 10^3/uL (1.5-8.5); NEUTROPHILS % 69.7 % (36.0-66.0); PLATELET COUNT, AUTOMATED 352 10^3/uL (150-450); RED BLOOD COUNT 3.91 10^6/uL (4.00-5.40); WHITE BLOOD COUNT 11.6 10^3/uL (4.0-10.0)
[2024-10-04 11:49] LABS: HEMOGLOBIN A1c 5.1 % (4.0-6.0)
[2024-10-04 11:54] LABS: ALBUMIN 3.6 G/DL (3.2-5.2); ALKALINE PHOSPHATASE 41 U/L (35-104); ALT/SGPT 31 U/L (7.0-40); AST/SGOT 16 U/L (<34); BILIRUBIN,TOTAL 0.6 MG/DL (0.3-1.2); BLOOD UREA NITROGEN 13 MG/DL (9-23); CALCIUM LEVEL 8.9 MG/DL (8.5-10.1); CARBON DIOXIDE LEVEL 24 MMOL/L (20-31); CHLORIDE LEVEL 110 MMOL/L (98-107); CHOLESTEROL LEVEL 199 MG/DL (<200); CHOLESTEROL RISK RATIO 3.58 (<5); GLOMERULAR FILTRATION RATE > 60.0 (>58); GLUCOSE, FASTING 76 MG/DL (60-100); HDL CHOLESTEROL 55.5 MG/DL (>40); LDL CHOLESTEROL 122.5 MG/DL (<100); NON-HDL-C 143.5 MG/DL; POTASSIUM SERUM 4.5 MMOL/L (3.5-5.1); SODIUM LEVEL 142 MMOL/L (136-145); TOTAL PROTEIN 6.6 G/DL (5.7-8.2); TRIGLYCERIDES LEVEL 105 MG/DL (<150)
[2024-10-04 11:55] LABS: FREE T4 1.07 NG/DL (0.89-1.76); THYROID STIMULATING HORMONE 1.008 uIU/ML (0.55-4.78)
== END ==
LOC: M WUC 08:48
PROVIDERS: ATTEND Family Medicine
DX: Z00.00 Encounter for general adult medical examination without abnormal findings (principal)

== ENCOUNTER → 2025-08-05 | Outpatient (REF) | payer BC ==
[~2025-08-05] MED LIST changes: +TOPI-256; +TOPI-257 PO; -TOPI100T9 PO; -TOPI25TA10
[2025-08-09 14:06] LABS: HPV APTIMA Not Detected (Not Detected)
== END ==
LOC: M SFHCWAGY 17:14
PROVIDERS: ATTEND Advanced Practice Midwife
DX: Z12.4 Encounter for screening for malignant neoplasm of cervix (principal)
CPT/HCPCS: 87624; G0123

== ENCOUNTER → 2025-08-05 | Outpatient (CLI) | payer BC | LOC: M WHC 13:54 | PROVIDERS: ATTEND Advanced Practice Midwife | DX: Z12.31 Encounter for screening mammogram for malignant neoplasm of breast (principal); R92.313 Mammographic fatty tissue density, bilateral breasts ==

== ENCOUNTER → 2025-08-18 | Outpatient (REF) | payer BC ==
[2025-08-18 10:50] LABS: BASO # 0.1 10^3/uL (0.0-0.2); BASO % 0.6 % (0.0-1.0); EOS # 0.1 10^3/uL (0.0-0.5); EOS % 0.7 % (0.0-3.0); LYMPH # 1.8 10^3/uL (1.5-5.0); LYMPH % 21.3 % (24.0-44.0); MONO # 0.4 10^3/uL (0.0-0.8); MONO % 4.9 % (2.0-8.0); NEUTROPHILS # 6.0 10^3/uL (1.5-8.5); NEUTROPHILS % 72.0 % (36.0-66.0); PLATELET COUNT, AUTOMATED 384 10^3/uL (150-450)
[2025-08-18 10:51] LABS: ALT/SGPT 17.0 U/L (7.0-40); AST/SGOT 12.0 U/L (<34); CALCIUM LEVEL 9.0 MG/DL (8.5-10.1); CARBON DIOXIDE LEVEL 24.0 MMOL/L (20-31); CHLORIDE LEVEL 108.0 MMOL/L (98-107); CREATININE FOR GFR 0.86 MG/DL (0.55-1.30); GLOMERULAR FILTRATION RATE 84.9 (>58); POTASSIUM SERUM 4.0 MMOL/L (3.5-5.1); SODIUM LEVEL 141.0 MMOL/L (136-145)
== END ==
LOC: M SFHCLERA 07:11
PROVIDERS: ATTEND Family Medicine
DX: D50.9 Iron deficiency anemia, unspecified (principal); I10 Essential (primary) hypertension

== ENCOUNTER → 2025-08-30 | Outpatient (CLI) | payer BC | LOC: M WHC 14:49 | PROVIDERS: ATTEND Advanced Practice Midwife | DX: N92.0 Excessive and frequent menstruation with regular cycle (principal) ==